=== PATIENT | female | born 1990 | race Hispanic/Latino ===

== ENCOUNTER 2022-04-02 15:43 | Emergency (ER) | payer BC ==
[2022-04-02 16:29] LABS: Bilirubin Neg (Negative); Blood, Urine 250 (Negative); Clarity Sl. Cloudy (Clear); Glucose, Urine (Dipstick) Normal (Negative); Ketone, Urine Negative (Negative); Leukocyte Negative (Negative); Nitrite Negative (Negative); Protein, Urine (Dipstick) 15 mg/dl (Neg-Trace); Urobilinogen Normal mg/dL (Less than 2)
[2022-04-02 16:33] LABS: #Eosinphils 0.1 10x3/uL (0.0-0.5); #Monocytes 0.5 10x3/uL (0.0-1.1); #Neutrophils 6.1 10x3/uL (1.5-8.4); %Basophils 0.3 % (0.0-2.0); %Eosinophils 1.5 % (0.0-6.0); %Lymphocytes 28.4 % (18.0-47.0); %Monocytes 5.2 % (0.0-10.0); %Neutrophils 64.4 % (40.0-75.0); Hemoglobin 12.4 g/dL (12.0-15.5); Mean Corpuscular HGB CONC 33.2 g/dL (32.0-36.0); Mean Corpuscular Hemoglobin 28.4 pg (27.0-33.0); Mean Corpuscular Volume 85.8 fl (81.6-98.3); Mean Platelet Volume 9.1 fl (7.4-10.4); Platelet Count 457 10x3/uL (150-450); RBC Distribution Width 13.3 % (11.5-14.5); Red Blood Cell (RBC) Count 4.36 10x6/uL (3.90-5.03); White Blood Cell (WBC) Count 9.5 10x3/uL (3.5-10.5)
[2022-04-02 16:47] LABS: Bacteria/HPF 2+ HPF (None Seen)
[2022-04-02 16:48] LABS: Mucous/LPF 3+ LPF (<2+)
== END 2022-04-02 17:34 | disposition home or self-care (01) ==
LOC: CSHERS 15:43
DX: O20.9 Hemorrhage in early pregnancy, unspecified (principal); Z3A.08 8 weeks gestation of pregnancy
CPT/HCPCS: 76856; 81003; 81015; 84702; 85025; 87086

== ENCOUNTER 2022-05-09 14:52 | Emergency (ER) | payer BC ==
[2022-05-09 15:34] LABS: Bilirubin Neg (Negative); Blood, Urine 25 (Negative); Glucose, Urine (Dipstick) Normal (Negative); Ketone, Urine Negative (Negative); Leukocyte Negative (Negative); Nitrite Negative (Negative); Protein, Urine (Dipstick) Negative (Neg-Trace); Specific Gravity, Urine 1.005 (1.005-1.030); Urobilinogen Normal mg/dL (Less than 2)
[2022-05-09 15:37] LABS: Clarity Clear (Clear)
[2022-05-09 15:50] LABS: #Eosinphils 0.1 10x3/uL (0.0-0.5); #Monocytes 0.4 10x3/uL (0.0-1.1); #Neutrophils 5.7 10x3/uL (1.5-8.4); %Basophils 0.1 % (0.0-2.0); %Eosinophils 1.5 % (0.0-6.0); %Monocytes 5.2 % (0.0-10.0); %Neutrophils 66.8 % (40.0-75.0); Hemoglobin 11.2 g/dL (12.0-15.5); Mean Corpuscular Hemoglobin 28.6 pg (27.0-33.0); Mean Corpuscular Volume 84.1 fl (81.6-98.3); Mean Platelet Volume 9.1 fl (7.4-10.4); Platelet Count 373 10x3/uL (150-450); RBC Distribution Width 13.4 % (11.5-14.5); Red Blood Cell (RBC) Count 3.91 10x6/uL (3.90-5.03); White Blood Cell (WBC) Count 8.5 10x3/uL (3.5-10.5)
[2022-05-09 15:51] LABS: Bacteria/HPF Rare-Few HPF (None Seen); RBC/HPF 0-3 HPF (0-3); Squamous Epithelial 0-3 HPF (0-3); WBC/HPF None Seen HPF (0-3)
== END 2022-05-09 17:10 | disposition home or self-care (01) ==
LOC: CSHERS 14:52
DX: O20.9 Hemorrhage in early pregnancy, unspecified (principal); Z3A.13 13 weeks gestation of pregnancy
CPT/HCPCS: 76815; 81003; 81015; 85025; 86900; 86901; 87086

== ENCOUNTER 2022-10-14 10:23 | Day surgery (SDC) | payer BC | END 2022-10-14 13:13 | disposition home or self-care (01) | LOC: CSHLD/OP 10:23 | PROVIDERS: ATTEND Obstetrics & Gynecology | DX: O47.03 False labor before 37 completed weeks of gestation, third trimester (principal); O24.419 Gestational diabetes mellitus in pregnancy, unspecified control; O99.213 Obesity complicating pregnancy, third trimester; E66.9 Obesity, unspecified; O99.343 Other mental disorders complicating pregnancy, third trimester; F32.A Depression, unspecified; Z3A.35 35 weeks gestation of pregnancy; Z90.49 Acquired absence of other specified parts of digestive tract | CPT/HCPCS: 99282 ==

== ENCOUNTER 2022-10-27 10:08 | Inpatient (IN) | payer BC, OTHER ==
[2022-10-27] MEDS: Lactated Ringer's 1,000 ML IV SCH (11:05)
[2022-10-27] MEDS ORDERED: NS w/ Oxytocin 30 units 500 ML ONE (11:20)
[2022-10-27] MEDS ORDERED: NS w/ Oxytocin 30 units 500 ML IV SCH ×4 (12:02→23:15)
[2022-10-27] MEDS ORDERED: Lidocaine 1% (PF) 30 ML VIAL SC PRN (12:02)
[2022-10-27] MEDS ORDERED: Fentanyl 100 MCG/2 ML VIAL SLOW IVP PRN (12:02)
[2022-10-27] MEDS ORDERED: HYDROcodone/Acetaminophen 5/325 mg Tablet PO PRN ×4 (12:02→23:02)
[2022-10-27] MEDS ORDERED: Promethazine HCl 25 MG/ML VIAL IM PRN ×2 (12:02→15:04)
[2022-10-27] MEDS ORDERED: hydrALAZINE 20 MG/ML VIAL SLOW IVP PRN ×2 (12:02→23:02)
[2022-10-27] MEDS ORDERED: Ibuprofen 800 MG TAB PO PRN (12:02)
[2022-10-27] MEDS ORDERED: Ondansetron PF 4 MG/2 ML Vial IVP PRN ×3 (12:02→23:02)
[2022-10-27 12:12] VITALS: BMI 42.5
[2022-10-27 12:18] LABS: Mean Corpuscular HGB CONC 31.4 g/dL (32.0-36.0); Mean Corpuscular Hemoglobin 25.3 pg (27.0-33.0); Mean Corpuscular Volume 80.5 fl (81.6-98.3); Mean Platelet Volume 10.4 fl (7.4-10.4); Platelet Count 331 10x3/uL (150-450); RBC Distribution Width 17.1 % (11.5-14.5); Red Blood Cell (RBC) Count 3.95 10x6/uL (3.90-5.03); White Blood Cell (WBC) Count 6.7 10x3/uL (3.5-10.5)
[2022-10-27] MEDS ORDERED: fentaNYL 50 mcg/mL 1 mL Vial SLOW IVP PRN (12:30)
[2022-10-27 12:39] LABS: HBSAg Index 0.14 S/CO (0-0.99); Hep B Surf Ag - L&D Non-Reactive S/CO (NonReactive)
[2022-10-27 12:41] LABS: Syphilis Antibody Nonreactive (Nonreactive); Syphilis Antibody Index 0.05 S/CO (<1.00 Non-Reactive)
[2022-10-27] MEDS ORDERED: Fentanyl 2 mcg/Bup 0.1% Cadd 100 ML ONE (13:51)
[2022-10-27] MEDS ORDERED: Naloxone HCl 0.4 mg/ml Vial IVP PRN ×2 (15:04)
[2022-10-27] MEDS ORDERED: Acetaminophen 325 MG TAB PO PRN (15:04)
[2022-10-27] MEDS ORDERED: Lactated Ringer's 500 ML IV PRN (15:04)
[2022-10-27] MEDS ORDERED: ePHEDrine Sulfate 50 MG/10 ML VIAL SLOW IVP PRN (15:04)
[2022-10-27] MEDS ORDERED: Moisturizing Cream (Eucerin) 113 GM JAR TOP PRN (15:04)
[2022-10-27] MEDS ORDERED: diphenhydrAMINE 50 MG/ML VIAL IVP PRN (15:04)
[2022-10-27] MEDS ORDERED: Fentanyl 2 mcg/Bupivacaine 0.1% Cassette 100 ML EPIDURAL SCH (15:15)
[2022-10-27] MEDS ORDERED: Communication Order-Pharmacy FS SCH (15:15)
[2022-10-27] MEDS ORDERED: Lanolin Ointment 7 GM TUBE TOP PRN (23:02)
[2022-10-27] MEDS ORDERED: Preparation H Ointment 28 GM TUBE PR PRN (23:02)
[2022-10-27] MEDS ORDERED: diphenhydrAMINE 25 MG CAP PO PRN (23:02)
[2022-10-27] MEDS ORDERED: Milk Of Magnesia 30 ML UDCUP PO PRN (23:02)
[2022-10-27] MEDS ORDERED: Benzocaine-Menthol 82.5 ML CAN TOP PRN (23:02)
[2022-10-27] MEDS ORDERED: Bisacodyl 10 MG SUPP PR PRN (23:02)
[2022-10-27] MEDS ORDERED: Boostrix 0.5 ML (Tdap) VIAL (>/=7 yrs of age) IM ONE (23:02)
[2022-10-27] MEDS ORDERED: Docusate 100 MG CAP PO SCH (23:30)
[2022-10-28] MEDS: Ibuprofen 800 MG TAB PO SCH ×3 (00:25→21:11)
[2022-10-28] MEDS: Prenatal Vitamin 1 TAB PO SCH (08:13)
[2022-10-28] MEDS: Ferrous Sulfate 325 MG TAB PO SCH ×2 (08:13→21:12)
[2022-10-28] MEDS: Docusate 100 MG CAP PO SCH ×2 (08:13→21:12)
[2022-10-28] MEDS: metFORMIN 500 MG TAB PO SCH ×2 (09:03→21:12)
[2022-10-28] MEDS: Lactated Ringer's 1,000 ML IV SCH (09:11)
[2022-10-29] MEDS: Ibuprofen 800 MG TAB PO SCH ×2 (05:13→10:04)
[2022-10-29 08:41] VITALS: BP 133/75; TEMP 98.1
[2022-10-29] MEDS: metFORMIN 500 MG TAB PO SCH (09:20)
[2022-10-29] MEDS: Prenatal Vitamin 1 TAB PO SCH (09:20)
[2022-10-29] MEDS: Docusate 100 MG CAP PO SCH (09:21)
[2022-10-29] MEDS: Ferrous Sulfate 325 MG TAB PO SCH (10:02)
== END 2022-10-29 15:00 | disposition home or self-care (01) | DRG 807 ==
LOC: CSHLD 10:08 → CSHPP 22:25
PROVIDERS: ADMIT Obstetrics & Gynecology; ATTEND Obstetrics & Gynecology
PROC: 10E0XZZ Delivery of Products of Conception, External Approach (ICD-10-PCS; principal; 2022-10-27)
DX: O24.12 Pre-existing type 2 diabetes mellitus, in childbirth (principal); Z37.0 Single live birth; E11.9 Type 2 diabetes mellitus without complications; Z3A.37 37 weeks gestation of pregnancy; E66.9 Obesity, unspecified; F32.A Depression, unspecified; Z79.84 Long term (current) use of oral hypoglycemic drugs; Z79.82 Long term (current) use of aspirin; Z90.49 Acquired absence of other specified parts of digestive tract; O99.214 Obesity complicating childbirth; O99.344 Other mental disorders complicating childbirth; Z88.1 Allergy status to other antibiotic agents
CPT/HCPCS: 36416; 85027; 86780; 86850; 86900; 86901; 87340; J2590; J3010; J7120

== ENCOUNTER 2023-08-05 21:15 | Emergency (ER) | payer BC ==
[2023-08-05] MEDS ORDERED: Acetaminophen 500 MG TAB ONE (22:15)
[2023-08-05] MEDS ORDERED: Ibuprofen 200 MG TAB ONE (22:15)
== END 2023-08-05 23:21 | disposition home or self-care (01) ==
LOC: CSHERS 21:15
DX: J02.9 Acute pharyngitis, unspecified (principal)
CPT/HCPCS: 71045; 93005